=== PATIENT | female | born 1940 | race Caucasian/White ===

== ENCOUNTER → 2024-05-18 | Outpatient (CLI) | payer MEDICARE, SELFPAY ==
[2024-05-18 17:03] LABS: Vitamin B12 583 pg/mL (211-911)
[2024-05-18 17:07] LABS: ALB/GLOB Ratio 1.2 RATIO (0.9-2.4); AST(SGOT) 15 U/L (15-37); Alanine Aminotransfer ALT/SGPT 19 U/L (13-56); Albumin, Serum 4.1 g/dL (3.2-5.0); Alkaline Phosphatase 87 U/L (45-117); Anion Gap 9 (5-15); BUN 19 mg/dL (7-18); BUN/Creat Ratio 17.8 RATIO (10-20); Calcium,Total 9.3 mg/dL (8.5-10.1); Chloride 102 mmol/L (98-107); Creatinine, Serum 1.07 mg/dL (0.55-1.02); EST Glomerular Filtration Rate 52 mL/min (>60); Est Glom Filt Rate - Afr Amer 63 mL/min (>60); Globulin 3.4 g/dL (2.2-4.2); Glucose 184 mg/dL (74-106); Potassium 4.1 mmol/L (3.5-5.1); Protein, Total 7.5 g/dL (6.4-8.2); Sodium Level 139 mmol/L (136-145)
[2024-05-18 17:18] LABS: Hemoglobin A1c 9.1 % (3.8-5.6)
== END | disposition home or self-care (01) ==
LOC: BIMLAB 14:51
PROVIDERS: PCP Internal Medicine; Referring Provider Internal Medicine; Visit Provider Internal Medicine
DX: E03.9 Hypothyroidism, unspecified (principal); E11.9 Type 2 diabetes mellitus without complications; E53.8 Deficiency of other specified B group vitamins
CPT/HCPCS: 36415; 80053; 82607; 83036; 84443

== ENCOUNTER → 2024-10-07 | Outpatient (CLI) | payer MEDICARE, SELFPAY ==
--- NOTE | 2024-10-07 09:52 | CT_ITS ---
PROCEDURE: ABDOMEN/PELVIS WITHOUT CONT 10/07/2024 REASON FOR EXAM: INCISIONAL HERNIA TECHNIQUE: Abdomen and pelvis CT without intravenous contrast. Noncontrast technique limits evaluation of the abdominal and pelvic viscera. Coronal and Sagittal reconstruction series were provided. One or more dose reduction techniques were used (e.g., Automated exposure control, adjustment of the mA and/or kV according to patient size, use of iterative reconstruction technique). PATIENT PREPARATION: Per protocol ORAL CONTRAST TYPE: None. COMPARISON: No comparison study available. FINDINGS: Lung bases: Mild dependent atelectasis Liver: Pneumobilia. This may be the result of status post cholecystectomy and possible common bile duct exploration. There is a 3.6 cm by 4 cm fluid collection in the region of the gallbladder fossa. Questionable gallbladder remnant versus large duodenal diverticulum. Gallbladder: Surgically absent. There is evidence of air and fluid within the common bile duct. The common bile duct measures 1 cm in transverse dimension. There is evidence of a duodenal diverticulum. Spleen: Normal size. There is evidence of a 2.5 cm by 2.5 cm calcified splenic arterial aneurysm at the level of the splenic hilum. Pancreas: Normal size. No surrounding inflammation. Adrenals: Unremarkable Kidneys: Findings suggestive of a 1.4 cm cyst in the anterior midportion of the left kidney. Bladder: Unremarkable Reproductive Organs: Prior hysterectomy. Bowel: Colonic diverticulosis without diverticulitis. Appendix: Lymph nodes: No suspicious lymph node enlargement. Vasculature: There is diffuse atherosclerotic calcifications of the abdominal aorta and the major visceral branches. Are noted. Peritoneum / Retroperitoneum: There is evidence of a anterior ventral hernia containing fat. The neck of the hernia measures 5 cm in transverse dimension. This is just distal to the umbilicus. Further caudally, a 2nd ventral hernia is seen with the neck measuring 5 cm. A nondilated loop of transverse colon is seen within it. There is also evidence of a hernia in the lower anterior abdominal wall with a transverse dimension of 5.5 cm containing nondilated small bowel loop. Bones: Degenerative changes of the spine. CT/Abdomen/Pelvis without Cont IMPRESSION: Status post cholecystectomy with evidence of pneumobilia and mildly dilated com mon bile duct with air and fluid within it. There is a 3.6 cm x 4 cm fluid collection in the region the gallbladder fossa. 2.5 cm x 2.5 cm calcified splenic arterial aneurysm 3 ventral hernias as described. Reading Location: [facility]
== END | disposition home or self-care (01) ==
PROVIDERS: PCP Internal Medicine; Referring Provider Physician Assistant; Visit Provider Physician Assistant
DX: K43.2 Incisional hernia without obstruction or gangrene (principal)
CPT/HCPCS: 74176

== ENCOUNTER 2024-10-20 15:00 | Outpatient (CLI) | payer MEDICARE, SELFPAY ==
--- NOTE | 2024-10-21 07:50 | EKG12_ITS ---
Test Reason : PRE OP
[2024-10-21 10:49] LABS: Anion Gap 14 (5-15); BUN 21 mg/dL (4-19); BUN/Creat Ratio 17.6 RATIO (10-20); Calcium,Total 9.3 mg/dL (7.6-11.0); Carbon Dioxide 23.6 mmol/L (21.0-32.0); Chloride 99 mmol/L (98-108); Creatinine, Serum 1.19 mg/dL (0.70-1.20); EST Glomerular Filtration Rate 46 (>60); Glucose 222 mg/dL (70-99); Potassium 4.5 mmol/L (3.3-5.1); Sodium Level 136 mmol/L (133-145)
--- NOTE | 2024-10-22 14:51 | PAT.ANESEVAL ---
Pre-Assessment Diagnosis/Proposed Procedure Planned Operative Procedure(s): Lap Robotic Ventral Hernia with mesh Anesthesia History Anesthesia History - [facility]: Anesthesia History - [facility] Hx Hospitalization No 10/20/24 11:56 Any Problems With Anesthesia No 10/20/24 11:56 Cholinesterase deficiency No 10/20/24 11:56 You/Your Family Experience No 10/20/24 11:56 fever (hyperthermia) with Relationship Recent Exposure to Contagious Disease Does patient have nerve No 10/20/24 11:56 stimulator Patient instructed to have device shut off --Does patient have Pacemaker or ICD? When Was Last Pacemaker Check QUESTION #4 FULL TEXT: You/Your Family Experience fever (hyperthermia) with Anesthesia Last Oral Intake Last Oral intake: Last Oral Intake NPO since Meds taken in AM with sips of water? Meds patient instructed to take am of surgery PONV PONV - [facility]: PONV - [facility] Female Yes 10/20/24 11:56 HX of Motion Sickness No 10/20/24 11:56 HX of N/V After Surgery No 10/20/24 11:56 Non-Smoker Yes 10/20/24 11:56 Duration of Surgery greater Yes 10/20/24 11:56 than 60 minutes Number of Risk Factors 3 10/20/24 11:56 PONV Score Moderate Risk 10/20/24 11:56 Height & Weight Height & Weight: Anesthesia: Height & Weight Height 5 ft 3 in 10/07/24 08:53 Respiratory Assessment Respiratory Assessment - [facility]: Respiratory Tract Infection Hx - [facility] Hx Respiratory Tract Infection No 10/20/24 11:56 STOP Sleep Apnea STOP Sleep Apnea - [facility]: STOP Sleep Apnea - [facility] Hx Hypertension Yes 10/20/24 11:56 Hx Sleep Apnea No 10/20/24 11:56 CPAP BIPAP Do you snore loudly (louder No 10/20/24 11:56 than talking or can be heard Do you often feel tired/ No 10/20/24 11:56 fatigued/ sleepy during daytime? Has anyone observed you stop No 10/20/24 11:56 breathing during sleep? STOP Results Negative 10/20/24 11:56 QUESTION #5 FULL TEXT : Do you snore loudly (louder than talking or can be heard through closed doors)? 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 Specify any problems Hx of Preganancy in last 3 No 10/20/24 11:56 Months Nurse Filling Out Transfusion [place] 10/20/24 11:56 & Questions: Date: 10/20/24 10/20/24 11:56 Time: 12:04 10/20/24 11:56 Patient unable to answer at this time (ie. confused, unrespo /Reproduction History /Reproductive History - [facility]: /Reproductive Hx- [facility] Hx Now Gestational Age (in weeks): EDC: Hx Hx Para Hx Section SAB PFSH Medical History Wears hearing aid Wears dentures Wears glasses Thyroid disease Gastric reflux Non-smoker Hoarseness Vision problems High cholesterol High blood pressure Hearing problem Gallstone Diabetes Breast lump Home Medications ?Medication ?Instructions ?Recorded ?Last Taken ?Type fluorometholone 0.1 % eye 1 drp ophthalmic (eye) Q12H DRY 05/18/24 Unknown History drops,suspension EYES melatonin 5 mg capsule 5 mg PO QHS 05/18/24 Unknown History amlodipine 2.5 mg tablet 2.5 mg PO QDAY #90 tabs 08/12/24 Unknown Rx gabapentin 100 mg capsule 100 mg PO TID #90 caps 09/01/24 Unknown Rx levothyroxine 25 mcg tablet 25 mcg PO QDAY #90 tabs 09/01/24 Unknown Rx losartan 25 mg tablet 25 mg PO QDAY #90 tabs 09/01/24 Unknown Rx omeprazole 20 mg capsule,delayed 20 mg PO QDAY #90 caps 09/01/24 Unknown Rx release simvastatin 20 mg tablet 20 mg PO QHS #90 tabs 09/01/24 Unknown Rx metformin 500 mg tablet,extended 500 mg PO BID #180 tabs 09/28/24 Unknown Rx release 24 hr cholecalciferol (vitamin D3) 25 50 mcg (2 x 25 mcg (1,000 unit)) 10/05/24 Unknown Rx mcg (1,000 unit) tablet (Vitamin PO QDAY #180 tabs D3) cyanocobalamin (vitamin B-12) 250 250 mcg PO BID #180 tabs 10/05/24 Unknown Rx mcg tablet Allergy/AdvReac Type Severity Reaction Status Date / Time No Known Allergies Allergy Unverified 10/07/24 08:54 Family History Mother Arthritis Father Myocardial infarction Surgical History History of cholecystectomy Social History household members: spouse housing: house current occupational status: 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 Sinus rhythm with PACs. Recommendation Anesthesia Recommendation Anesthesia recommendation: OPTIMIZED for anesthesia (Please be aware that the patient's hemoglobin A1c is 10.0. Please consider the implications of poor wound healing and increased risk of infection after the procedure.)
== END 2024-10-20 19:00 | disposition home or self-care (01) ==
LOC: SDC 05-19 16:06
PROVIDERS: Anesthesiology; PCP Internal Medicine; Referring Provider Surgery; Visit Provider Surgery
DX: Z01.818 Encounter for other preprocedural examination (principal); E11.9 Type 2 diabetes mellitus without complications
CPT/HCPCS: 36415; 80048; 83036; 84443; 93005

== ENCOUNTER → 2024-12-04 | Outpatient (CLI) | payer MEDICARE, SELFPAY ==
[2024-12-04 13:00] LABS: Absolute Lymphocyte Count 2.41 X10^3/uL (0.83-4.51); Absolute Neutrophil Count 6.3 X10^3/uL (2.0-7.7); Basophil# 0.06 X10^3/uL; Basophil% 0.6 % (0-1); Eosinophil# 0.16 X10^3/uL; Eosinophils% 1.7 % (0-5); Hematocrit 40.5 % (37-47); Hemoglobin 13.5 g/dL (12.0-15.0); Lymphocyte # 2.41 X10^3/ul (0.83-4.51); Lymphocyte % 25.5 % (19-41); Mean Corp Hgb Conc 33.3 g/dL (32-36); Mean Corpuscular Hgb 29.7 pg (27.0-32.0); Mean Platelet Vol. 12.1 fl (6.2-12.0); Monocyte# 0.52 X10^3/uL; Monocyte% 5.5 % (0-10); NRBC Flagged by Analyzer 0 % (0-5); Neutrophil # 6.27 X10^3/uL (2.7-7.7); Neutrophil % 66.4 % (47-70); Platelet Count 195 K/mm3 (150-450); RBC Distribution Width CV 13.9 % (11.6-14.6); RBC Distribution Width SD 45.2 fl (35.1-43.9); Red Blood Count 4.55 M/mm3 (4.2-5.4); White Blood Count 9.5 K/mm3 (4.4-11.0)
[2024-12-04 13:20] LABS: ALB/GLOB Ratio 1.6 RATIO (0.9-2.4); AST(SGOT) 19 U/L (<=31); Alanine Aminotransfer ALT/SGPT 12 U/L (<=34); Albumin, Serum 4.4 g/dL (3.4-4.8); Alkaline Phosphatase 80 U/L (35-104); Anion Gap 13 (5-15); BUN 16 mg/dL (4-19); BUN/Creat Ratio 13.2 RATIO (10-20); Calcium,Total 9.4 mg/dL (7.6-11.0); Carbon Dioxide 24.5 mmol/L (21.0-32.0); Chloride 103 mmol/L (98-108); Creatinine, Serum 1.23 mg/dL (0.70-1.20); EST Glomerular Filtration Rate 44 (>60); Globulin 2.7 g/dL (2.2-4.2); Glucose 126 mg/dL (70-99); Magnesium 1.5 mg/dL (1.5-2.2); Potassium 4.2 mmol/L (3.3-5.1); Protein, Total 7.1 g/dL (5.9-8.4); Sodium Level 140 mmol/L (133-145); Total Bilirubin 1.05 mg/dL (0.00-1.30)
== END | disposition home or self-care (01) ==
PROVIDERS: PCP Internal Medicine; Referring Provider Internal Medicine; Visit Provider Internal Medicine
DX: I10 Essential (primary) hypertension (principal); E11.9 Type 2 diabetes mellitus without complications
CPT/HCPCS: 36415; 80053; 83735; 84443; 85025

== ENCOUNTER → 2025-03-09 | Outpatient (CLI) | payer MEDICARE, SELFPAY | END | disposition home or self-care (01) | LOC: BIMLAB 09:09 | PROVIDERS: PCP Internal Medicine; Referring Provider Internal Medicine; Visit Provider Internal Medicine | DX: Z00.00 Encounter for general adult medical examination without abnormal findings (principal) ==